=== PATIENT | female | born 1970 | race Caucasian/White ===

== ENCOUNTER 2016-09-19 14:10 | Emergency (ER) | payer OTHER, BC ==
[~2016-09-19] VITALS: Ht 165.1 cm; Wt 123.5 kg
[~2016-09-19 14:10] MED LIST: NAPR-260 PO; ULT50 PO
[2016-09-19 14:12] VITALS: Ht 165.1 cm; Wt 123.5 kg
[2016-09-19] MEDS ORDERED: AZIT250T94 PO (15:22)
[2016-09-19] MEDS ORDERED: GUAI10LI PO (15:22)
--- NOTE | 2016-09-19 15:28 | ERD ---
ER Documentation Chief Complaint Date/Time DATE: 09/19/16 TIME: 15:26 Chief Complaint flu like symptoms HPI Patient is a 46-year-old female who presents with cough and congestion that she has had on and off for 2-3 weeks. She states she works at a [employer] and there has been several people who have been sick with bronchitis and pneumonia as she often has to use multiple phones that had been contacted by the sick people. She denies she had a fever last night but she did not take her temperature. She is tolerating oral intake. There is no nausea or vomiting or diarrhea. Cough is dry worsen night and she has taken NyQuil which helps her sleep however she still has symptoms. ROS All systems reviewed and are negative except as per history of present illness. Medications Home Meds Active Scripts Guaifenesin/Codeine Phosphate (GUAIFENESIN-CODEINE SYRUP) 10 Ml Liquid, 10 ML PO QHS, #4 OZ Prov:EMELY PEGUERO PA-C 09/19/16 Azithromycin* (Zithromax*) 250 Mg Tablet, 250 MG PO .ZPACK DIRECTED, #6 TAB TAKE 500 MG (2 TABS) THE FIRST DAY THEN 250 MG (1 TAB) DAYS 2-5 Prov:EMELY PEGUERO PA-C 09/19/16 Tramadol HCl (Tramadol HCl) 50 Mg Tablet, 50 MG PO Q4 Y for PAIN, #20 TAB Prov:EFRAIN HASTINGS PA-C 10/08/15 Naproxen* (Naprosyn*) 500 Mg Tablet, 500 MG PO BID Y for PAIN AND/OR INFLAMMATION, #30 TAB Prov:EFRAIN HASTINGS PA-C 10/08/15 PMhx/Soc Hx Miscellaneous Medical Probl: Yes (roseacea, sciatica) Hx Alcohol Use: No Hx Substance Use: No Hx Tobacco Use: No FmHx Family History: No diabetes Physical Exam Vitals Vital Signs Date Time Temp Pulse Resp B/P Pulse Ox O2 Delivery O2 Flow Rate FiO2 09/19/16 14:12 98.5 68 20 137/95 99 Physical Exam General: well developed, well nourished, alert, nontoxic, no distress Head: normocephalic, atraumatic Neck: Supple, nontender, no lymphadenopathy, no midline tenderness Oropharynx: no tonsilar erythema or edema, uvula midline, no exudates, no kissing tonsils, no drooling Respiratory: Clear to auscaultation bilaterally, speaks in full sentences, no use of accesory muscles or labored breathing, no rales, ronchi, or wheezing Cardiovascular: RRR, No murmurs GI: soft, non tender, non distended, negative murphys sign, negative mcburneys point tenderness, no cva tenderness bilaterally, no rebound or guarding Procedures/MDM 46-year-old female presents with cough and congestion on and off for 2-3 weeks. Her vital signs are within normal limits that she is well-appearing in no distress. Have a low suspicion for pneumonia however given she has tried over- the-counter therapies and is in contact with sick people I will treat her with a Z-Manny as well as cough syrup.Recommended this patient follow up with her primary care doctor within 48 hours or return to the emergency room for any worsening of symptoms. However this time I do believe there is suitable for outpatient management. I answered all their questions and they agreed with the plan and were discharged home. Departure Diagnosis: Primary Impression: Bronchitis Condition: Stable Patient Instructions: Bronchitis, Antiobiotic Treatment (Adult) Additional Instructions: Call your primary care doctor TOMORROW for an appointment during the next 1-2 days.See the doctor sooner or return here if your condition worsens before your appointment time. EMELY PEGUERO PA-C Sep 19, 2016 15:28
== END 2016-09-19 16:09 | disposition home or self-care (01) ==
LOC: FTE 14:10 → E/R 16:09
DX: J20.9 Acute bronchitis, unspecified (principal)
CPT/HCPCS: 99283

== ENCOUNTER 2017-01-21 19:40 | Emergency (ER) | payer OTHER, BC ==
[~2017-01-21] VITALS: Ht 165.1 cm; Wt 135.5 kg
[~2017-01-21 19:40] MED LIST changes: +AZIT250T94 PO; +GUAI10LI PO; +TRAM50TA2 PO; -ULT50 PO
[2017-01-21 20:06] VITALS: Ht 165.1 cm; Wt 135.5 kg
[2017-01-21] MEDS ORDERED: HYDROCODONE/APAP (5/325) TAB PO ONE (21:00)
--- NOTE | 2017-01-21 21:33 | RADRPT ---
PROCEDURE: US left lower extremity venous Doppler CLINICAL INDICATION: Swelling TECHNIQUE: Multiple sonographic images of the left lower extremity deep venous system was obtained utilizing grayscale, color-flow, compressive sonography and Doppler imaging with augmentation. COMPARISON: No pertinent prior examinations were submitted for comparison. FINDINGS: There is normal compressibility and flow within the left common femoral, superficial femoral, poplit eal, and calf veins. IMPRESSION: No sonographic evidence for left deep venous thrombosis. RPTAT: HIKT .Celso Lozoya MD, MD Date Time Electronically viewed and signed by .Celso Lozoya MD, on 01/21/2017 21:32 .T/
--- NOTE | 2017-01-21 21:55 | RADRPT ---
PROCEDURE: XR Left Foot CLINICAL INDICATION: Fall TECHNIQUE: AP, oblique, and lateral radiographs were submitted. COMPARISON: None FINDINGS: Osseous structures: appear well mineralized and intact with no fracture or destructive process iden tified. Joint spaces: There is a mild hallux valgus Soft tissues: appear unremarkable. IMPRESSION: 1. Mild hallux valgus. 2. Otherwise, unremarkable left foot series. Physician Theron Date Time Electronically viewed and signed by Anh Hicks Physician on 01/21/2017 21:54 /
--- NOTE | 2017-01-21 21:56 | RADRPT ---
PROCEDURE: XR Left Ankle CLINICAL INDICATION: Fall TECHNIQUE: Standard 3 view radiographs were submitted. COMPARISON: None FINDINGS: Osseous structures: Well mineralized and intact with no fracture or destructive process identified. Joint spaces: Well maintained with no significant erosions or spurring evident. Soft tissues: The soft tissues are generous. Pleural an 8 mm calcification is seen in the soft tiss ues ventral to the distal third of the left tibia. IMPRESSION: 1. No fracture or dislocation is evident. 2. An 8 mm calcification is seen within the soft tissues ventral to the distal third of the left ti zeke. Physician Theron Date Time Electronically viewed and signed by Physician Theron on 01/21/2017 21:55 /
[2017-01-21] MEDS ORDERED: HYDR-906 PO (22:10)
[2017-01-21] MEDS ORDERED: NAPR-260 PO (22:10)
[2017-01-21] MEDS ORDERED: KETOROLAC 60 MG INJ IM STA (22:15)
--- NOTE | 2017-01-22 02:00 | ERD ---
ER Documentation Chief Complaint Date/Time DATE: 01/22/17 TIME: 02:00 Chief Complaint fell on wednesday- left foot pain HPI This is a 46 y.o female that presents to the ER after she fell down the stairs 3 days ago. She is now complaining of left foot pain. Left foot pain is throbbing in quality and radiates into her ankle and calf. Patient denies any numbness or tingling of her foot. She denies any redness or swelling of her calf. She denies any fever or chills. ROS 12 point review of systems was done all negative, except per HPI. Medications Home Meds Active Scripts Naproxen* (Naprosyn*) 500 Mg Tablet, 500 MG PO BID Y for PAIN AND/OR INFLAMMATION, #30 TAB Prov:JILLIAN SELLERS 01/21/17 Hydrocodone/Acetaminophen (Alcove 5-325 Tablet) 1 Each Tablet, 1 TAB PO Q6H Y for PAIN, #15 TAB Prov:JILLIAN SELLERS 01/21/17 Guaifenesin/Codeine Phosphate (GUAIFENESIN-CODEINE SYRUP) 10 Ml Liquid, 10 ML PO QHS, #4 OZ Prov:EMELY PEGUERO PA-C 09/19/16 Azithromycin* (Zithromax*) 250 Mg Tablet, 250 MG PO .TRACIECK DIRECTED, #6 TAB TAKE 500 MG (2 TABS) THE FIRST DAY THEN 250 MG (1 TAB) DAYS 2-5 Prov:EMELY PEGUERO PA-C 09/19/16 Tramadol HCl (Tramadol HCl) 50 Mg Tablet, 50 MG PO Q4 Y for PAIN, #20 TAB Prov:EFRAIN HASTINGS PA-C 10/08/15 Naproxen* (Naprosyn*) 500 Mg Tablet, 500 MG PO BID Y for PAIN AND/OR INFLAMMATION, #30 TAB Prov:EFRAIN HASTINGS PA-C 10/08/15 PMhx/Soc Medical and Surgical Hx: pt denies Surgical Hx Hx Miscellaneous Medical Probl: Yes (roseacea, sciatica) Hx Alcohol Use: No Hx Substance Use: No Hx Tobacco Use: No Smoking Status: Never smoker Physical Exam Vitals Physical Exam Const: [] Head: Atraumatic Resp: Clear to auscultation bilaterally Cardio: Regular rate and rhythm, no murmurs Skin: No petechiae or rashes Back: No midline or flank tenderness Ext: patient is ttp along the left mid foot. full and on painful rom of ankle. negative tarsal twist test. 2 pulses. left calf is ttp however there is no erythema or edema Neur: Awake and alert Psych: Normal Mood and Affect Results 24 hrs Current Medications Medications (Trade) Dose Ordered Sig/Thuan Route PRN Reason Start Time Stop Time Status Last Admin Dose Admin Acetaminophen/ Hydrocodone Bitart (Alcove (5/325)) 1 tab ONCE ONCE PO 01/21/17 21:00 01/21/17 21:01 DC 01/21/17 21:33 Ketorolac Tromethamine (Toradol) 60 mg ONCE STAT IM 01/21/17 22:15 01/21/17 22:17 DC 01/21/17 22:51 Procedures/MDM This is a 46 y/o female that presents to the ER after a fall. There is no evidence of fracture or dislocation on x-ray. Patient has full ROM of her left foot and ankle and is n/v intact. Patient does not have a DVT and is afebrile and well appearing. Patient was put in an wrap. She was n./v intact before and after wrap application. Patient needs to f/u with her PCP within 1-2 days or return to ER sooner if symptoms worsen. My medical decision making was shared with the patient she understands and agrees with plan. Departure Diagnosis: Primary Impression: Foot pain Condition: Stable Patient Instructions: Sprain Foot Additional Instructions: Call your primary care doctor TOMORROW for an appointment during the next 1-2 days.See the doctor sooner or return here if your condition worsens before your appointment time. JILLIAN SELLERS January 22, 2017 02:00
== END 2017-01-21 23:17 | disposition home or self-care (01) ==
LOC: FTE 19:40
DX: M79.672 Pain in left foot (principal)
CPT/HCPCS: 73610; 73630; 93971; 96372; 99284; J1885